=== PATIENT | female | born 1945 | race American Indian/Alaskan Native ===

== ENCOUNTER 2017-05-24 08:52 | Day surgery (SDC) | payer MEDICARE ==
[~2017-05-24 08:52] MED LIST: MARCAINE 0.5% INFILTRATI ONE; NACL 0.9% IR ONE
[2017-05-24] MEDS ORDERED: MARCAINE 0.5% 30 ML INFILTRATI ONE (09:10)
[2017-05-24] MEDS ORDERED: XYLOCAINE 1% MPF 5 mL ONE (09:11)
--- NOTE | 2017-05-24 10:19 | Anesthesia Consultation ---
Anesthesia Consult and Med Hx Date of service: 05/24/17 - Airway Anesthetic Teeth Evaluation: Partials ROM Head & Neck: Adequate Mental/Hyoid Distance: Adequate Mallampati Class: Class II Intubation Access Assessment: Probably Good - Pulmonary Exam CTA: Yes - Cardiac Exam Cardiac Exam: RRR - Pre-Operative Health Status ASA Pre-Surgery Classification: ASA3 Proposed Anesthetic Plan: General - Pulmonary Hx Smoking: No Hx Respiratory Symptoms: Yes (bronchitis last month) Hx Sleep Apnea: No - Cardiovascular System Hx Hypertension: Yes (SINCE THE ) Hx Heart Attack/AMI: No - Central Nervous System Hx Neuromuscular Disorder: Yes (OA knee) Hx Seizures: No CVA: No Hx Psychiatric Problems: No - Gastrointestinal Hx Gastroesophageal Reflux Disease: No - Endocrine Hx Renal Disease: No Hx Liver Disease: No Hx Non-Insulin Dependent Diabetes: Yes - Other Systems Hx Alcohol Use: No Hx Substance Use: No Hx Cancer: No Hx Obesity: Yes - Additional Comments Anesthesia Medical History Comments: NAC
--- NOTE | 2017-05-24 10:20 | Anesthesia Day of Surgery ---
Anesthesia Day of Surgery - Day of Surgery Patient Examined: Yes Patient H&P Reviewed: Yes Patient is NPO: Yes Beta Blockers: Yes
[2017-05-24] MEDS ORDERED: DIPRIVAN 10 MG/ML IV ONE (10:33)
[2017-05-24] MEDS ORDERED: SUBLIMAZE ONE (10:34)
[2017-05-24] MEDS ORDERED: XYLOCAINE MPF 2% ONE (10:36)
[2017-05-24] MEDS ORDERED: LACTATED RINGERS 1,000 ML IV SCH (11:00)
[2017-05-24] MEDS ORDERED: VERSED IV NR (11:00)
[2017-05-24] MEDS ORDERED: ANCEF/STERILE WATER 2 GM/20 ML IV NR (11:00)
[2017-05-24] MEDS ORDERED: PEPCID IV NR (11:00)
[2017-05-24] MEDS ORDERED: ZOFRAN ONE (11:26)
--- NOTE | 2017-05-24 12:06 | Discharge Summary ---
Short Stay Discharge Plan Activity: advance as tolerated Diet: thickened liquids Wound: open to air Follow up with: BETH LAWRENCE MD [Primary Care Provider] - 7 Days
[2017-05-24] MEDS ORDERED: ZOFRAN IV PRN (12:30)
[2017-05-24] MEDS ORDERED: MORPHINE ONE (12:30)
[2017-05-24] MEDS: MORPHINE IV PRN ×2 (12:30→12:35)
[2017-05-24] MEDS ORDERED: TORADOL IV NR (13:03)
--- NOTE | 2017-05-24 13:38 | Post Anesthesia Evaluation ---
- Post Anesthesia Evaluation Patient Participated: Yes Airway Patent: Yes Stable Respiratory Function: Yes Nausea/Vomiting: No Temp > 96.8F: Yes Pain Manageable: Yes Adequeate Hydration: Yes Anesthesia Complications: No Block Receding Appropriately: Not Applicable Patient on Ventilator: No
[2017-05-24 14:43] VITALS: BP 123/53
--- NOTE | 2017-05-24 20:55 | Operative Report ---
PREOPERATIVE DIAGNOSIS: Left submandibular mass. POSTOPERATIVE DIAGNOSIS: Left submandibular mass, pending final pathology report. SURGERY: Removal of mass in left submandibular area. This was about 4 x 3 x 3 cm. We were able to stay away from the major structure in that area, in particular the transverse cervical nerve and the submental nerve. DESCRIPTION OF PROCEDURE: With the patient in supine position with the face turned to the right side, an incision performed in submandibular area for a length of about 2 cm deep subcutaneous tissue that had to extend my incision about 1 cm. Then, I could feel the mass is fairly hard, slowly dissecting it with use of __ cautery after having a retention suture on it to have good exposure. I made sure not to injure any of the major structure in the area. I was able to see the transverse cervical artery and vein. Thus mass was removed in toto. I was able to spray some Rhiannon. I was very much satisfied. Then, the wound was closed in layers. I used 3-0 for the subcutaneous tissue and 4-0 for the skin and the glue. Then, the patient was transferred to the recovery in good condition. I saw her myself in the recovery room. She was able to move her neck and her jaw and no evidence of any asymmetry in the facial features. She is able go to home and then we will go from there. JOB# [id number] SONIA/CHANDANA
== END 2017-05-24 15:15 | disposition home or self-care (01) ==
LOC: OR 08:52
PROVIDERS: ATTEND Surgery
DX: C83.31 Diffuse large B-cell lymphoma, lymph nodes of head, face, and neck (principal); I10 Essential (primary) hypertension; Z79.899 Other long term (current) drug therapy; M17.9 Osteoarthritis of knee, unspecified; E11.9 Type 2 diabetes mellitus without complications; E66.9 Obesity, unspecified; Z68.37 Body mass index [BMI] 37.0-37.9, adult; Z91.040 Latex allergy status; Z91.013 Allergy to seafood; Z88.8 Allergy status to other drugs, medicaments and biological substances; Z91.048 Other nonmedicinal substance allergy status; Z98.51 Tubal ligation status
CPT/HCPCS: 36415; 42405; 82962; 84132; 88307; 88342; J0690; J2250; J2270; J2405; J2704; J3010; J7120; 88341

== ENCOUNTER 2017-08-25 08:46 | Day surgery (SDC) | payer MEDICARE ==
--- NOTE | 2017-08-25 09:38 | Anesthesia Consultation ---
Anesthesia Consult and Med Hx - Airway Anesthetic Teeth Evaluation: Poor ROM Head & Neck: Adequate Mental/Hyoid Distance: Adequate Mallampati Class: Class II Intubation Access Assessment: Good - Pulmonary Exam CTA: Yes - Cardiac Exam Cardiac Exam: RRR - Pre-Operative Health Status ASA Pre-Surgery Classification: ASA3 Proposed Anesthetic Plan: MAC - Pulmonary Hx Smoking: No Hx Respiratory Symptoms: Yes (bronchitis last month) Hx Sleep Apnea: No - Cardiovascular System Hx Hypertension: Yes (dx in the 90's) Hx Heart Attack/AMI: No - Central Nervous System Hx Neuromuscular Disorder: Yes (OA knee) Hx Seizures: No CVA: No Hx Back Pain: Yes Hx Psychiatric Problems: No - Gastrointestinal Hx Gastroesophageal Reflux Disease: No - Endocrine Hx Renal Disease: No Hx Liver Disease: No Hx Non-Insulin Dependent Diabetes: Yes - Hematic Hx Sickle Cell Disease: No - Other Systems Hx Alcohol Use: Yes (OCCAS WINE) Hx Substance Use: No Hx Cancer: Yes Hx Obesity: Yes
[2017-08-25] MEDS ORDERED: ZOFRAN IV PRN (09:39)
--- NOTE | 2017-08-25 09:39 | Anesthesia Day of Surgery ---
Anesthesia Day of Surgery - Day of Surgery Patient Examined: Yes Patient H&P Reviewed: Yes Patient is NPO: Yes Beta Blockers: Yes (5am today)
[2017-08-25] MEDS ORDERED: VERSED IV NR (10:00)
[2017-08-25] MEDS ORDERED: ROBINUL ONE (10:00)
[2017-08-25] MEDS ORDERED: NACL 0.9% 1000 ML 1,000 ML IV SCH (10:00)
[2017-08-25] MEDS ORDERED: ZOFRAN ONE (10:00)
[2017-08-25] MEDS ORDERED: DIPRIVAN 10 MG/ML IV ONE (10:04)
[2017-08-25] MEDS ORDERED: ANCEF/STERILE WATER 2 GM/20 ML IV NR (10:30)
[2017-08-25] MEDS ORDERED: NACL 0.9% 250ML IV ONE (11:35)
[2017-08-25] MEDS ORDERED: XYLOCAINE 1% 20 mL INFILTRATI ONE ×2 (11:35→12:21)
[2017-08-25] MEDS ORDERED: MARCAINE 0.25% INFILTRATI ONE ×2 (11:35→12:21)
[2017-08-25] MEDS ORDERED: NACL 0.9% IR ONE (11:35)
[2017-08-25] MEDS ORDERED: HEPARIN IV ONE ×2 (11:35→12:10)
--- NOTE | 2017-08-25 12:23 | Discharge Summary ---
Short Stay Discharge Plan Activity: advance as tolerated Weight Bearing Status: Full Weight Bearing Diet: low fat Wound: per your surgeon's advice Follow up with: JENNI MADERA MD [Primary Care Provider] - 7 Days
--- NOTE | 2017-08-25 12:44 | Fluoroscopy Report ---
Single fluoroscopic image of upper chest: History: Non-Hodgkin lymphoma. Findings: Tip of left central line is in mid superior vena cava. In the visualized posterior lungs no pneumothorax is seen. Impression: Normal position of left central line.
[2017-08-25] MEDS: DILAUDID IV PRN ×2 (12:45→13:00)
[2017-08-25] MEDS ORDERED: TYLENOL #3 PO PRN (13:57)
[2017-08-25 16:48] VITALS: BP 130/69
--- NOTE | 2017-08-25 23:45 | Post Anesthesia Evaluation ---
- Post Anesthesia Evaluation Patient Participated: Yes Airway Patent: Yes Stable Respiratory Function: Yes Nausea/Vomiting: No Temp > 96.8F: Yes Pain Manageable: Yes Adequeate Hydration: Yes Anesthesia Complications: No Block Receding Appropriately: Not Applicable
--- NOTE | 2017-08-26 04:30 | Operative Report ---
PREOPERATIVE DIAGNOSIS: Non-Hodgkin's lymphoma. POSTOPERATIVE DIAGNOSIS: Non-Hodgkin's lymphoma. PROCEDURE: Insertion of subcutaneous port. This was done under general anesthesia and using the C-arm as well as the ultrasound to see the area of the subclavian vein on the left side. This was done on the left side as mentioned above. DESCRIPTION OF PROCEDURE: With the patient in the Trendelenburg position, was prepped and draped in the usual fashion. The area of the inferior to the clavicle was checked with the use of the ultrasound. We could see the subclavian vein and the artery, so I directed a needle towards the direction of the vein. It went in nicely and a good backflow of venous blood following which a guidewire was inserted with use of the camera. So, we took the needle out and I left the wire end. After that maneuvering, a pocket was created in the area just at the incision site to accommodate the system with a depth of about 1 cm and width about 2-1/2 and the longitudinal pocket is about 3 cm. Then, with the use of fluoroscopy, I was able to go with the dilator slowly. With the use of the guidewire, it went in nicely, removing the dilator and the guidewire leaving the sheath through which I was able to use the tubing that is about 50 cm long. It goes all the way to the inferior vena cava area. I was very much satisfied. Then, the system was assembled in the usual fashion, tacking the port to the pectoralis fascia with use of 3-0 Vicryl, I had good backflow of venous blood via the port percutaneously on 2 occasions. The system was then irrigated with the use of 3 mL of heparin. After that maneuvering, the wound was then closed in layers. I used 3-0 Vicryl for the deep and superficial subcutaneous tissue and the skin with 4-0 Vicryl for the entire cuticular layer and a glue. The patient was then transferred to the recovery room in good condition. I saw her myself in the recovery room or PACU. She was alert and responsive. She talked to me and I talked to her. I talked to her son telling him that everything went fine and she will go home this afternoon, to call me in about 10 days in my office if there is anything specific. She may use the port at any time after 5-6 days. JESSE: 08/25/2017 13:13 JOB# [id number] SONIA/CHANDANA
== END 2017-08-25 14:52 | disposition home or self-care (01) ==
LOC: OR 08:46
PROVIDERS: ATTEND Surgery
DX: C85.90 Non-Hodgkin lymphoma, unspecified, unspecified site (principal); I10 Essential (primary) hypertension; M17.9 Osteoarthritis of knee, unspecified; E11.9 Type 2 diabetes mellitus without complications; E66.9 Obesity, unspecified; Z88.8 Allergy status to other drugs, medicaments and biological substances; Z91.040 Latex allergy status; Z79.899 Other long term (current) drug therapy; Z91.010 Allergy to peanuts; Z68.37 Body mass index [BMI] 37.0-37.9, adult
CPT/HCPCS: 36561; 77001; 82962; C1788; J0690; J1644; J2250; J2405; J2704; J7030; J7050